=== PATIENT | female | born 1995 | race Caucasian/White ===

== ENCOUNTER 2017-05-05 18:11 | Emergency (ER) | payer BC ==
[2017-05-05 19:44] VITALS: BP 152/91
[2017-05-05] MEDS ORDERED: Lidocaine 1% MPF* 2 ML VIAL INJ ONE ×2 (20:19→20:20)
--- NOTE | 2017-05-05 20:49 | UC ---
Laceration HPI - HPI Summary HPI Summary: 22 female presents to with complaints of laceration to left index finger that began around 1800 today, while cooking dinner with a knife. States she was cutting an [place] when the knife slipped. Denies any other injuries or complaints. Denies foreign body. No other complaints. Tetanus was last updated in January 2017. Denies numbness and tingling, bleeding controlled with pressure , is able to move entire finger without difficulty. Is right hand dominant. - History Of Current Complaint Chief Complaint: UCLaceration Stated Complaint: LACERATION LEFT INDEX FINGER Time Seen by Provider: 05/05/17 20:07 Hx Obtained From: Patient Hx Last Menstrual Period: 2 weeks Laceration Location: Finger - left index Mechanism Of Injury: Sharp Trauma - knife Onset/Duration: Sudden Onset, Lasting Hours Severity: Moderate Pain Intensity: 5 Pain Scale Used: 0-10 Numeric Aggravating Factors: Movement Hands: 1 - left superficial laceration Related History: Dominant Hand Right - Allergies/Home Medications Allergies/Adverse Reactions: Allergies Allergy/AdvReac Type Severity Reaction Status Date / Time Penicillins Allergy Diarrhea Verified 05/05/17 19:45 Home Medications: Home Medications Amitriptyline TAB* [Elavil TAB*] 10 mg PO BEDTIME 05/05/17 [History Confirmed ] Loestrogen Oc 1 tab PO QPM 05/05/17 [History Confirmed 05/05/17] Magnesium [Magnesium] 400 mg PO DAILY 05/05/17 [History Confirmed 05/05/17] Melatonin 3 mg PO QPM 05/05/17 [History Confirmed 05/05/17] Multivitamins/Minerals TAB* [Theragran/minerals TAB*] 1 tab PO DAILY 05/05/17 [ History Confirmed 05/05/17] Probiotic Product [Daily Probiotic] 1 cap PO DAILY 05/05/17 [History Confirmed 05/05/17] Spironolactone TAB* [Aldactone TAB*] 25 mg PO DAILY 05/05/17 [History Confirmed 05/05/17] Vitamin B 2 1 tab PO DAILY 05/05/17 [History Confirmed 05/05/17] PMH/Surg Hx/FS Hx/Imm Hx - Additional Past Medical History Additional PMH: Denies PMHx No DM or HTN and no anticoagulants. - Surgical History Surgical History: None - Family History Known Family History: Positive: None - Social History Alcohol Use: Occasionally Substance Use Type: None Smoking Status (MU): Never Smoked Tobacco - Immunization History Most Recent Tetanus Shot: 01/2017 Review of Systems Constitutional: Negative Skin: Other - laceration left index finger Respiratory: Negative Cardiovascular: Negative Musculoskeletal: Negative All Other Systems Reviewed And Are Negative: Yes Physical Exam Triage Information Reviewed: Yes Appearance: Well-Appearing, Well-Nourished, Pain Distress - mild Vital Signs: Initial Vital Signs Temp 97.7 F 05/05/17 19:40 Pulse 98 05/05/17 19:40 Resp 16 05/05/17 19:40 BP 152/91 05/05/17 19:40 Vital Signs Reviewed: Yes Eyes: Positive: Conjunctiva Clear ENT: Positive: Hearing grossly normal Neck: Positive: Supple, Nontender Respiratory: Positive: Chest non-tender, Lungs clear, Normal breath sounds, No respiratory distress, No accessory muscle use Cardiovascular: Positive: RRR, No Murmur, Pulses Normal - 2+ radial b/l, Brisk Capillary Refill - <2 sec Musculoskeletal: Positive: Strength Intact, ROM Intact, No Edema. Negative: Strength Limited @, ROM Limited @ Neurological: Positive: Alert Skin: Positive: Other - 1.5cm linear superficial laceration to left index finger , bleeding controlled, no FB Laceration Repair - Laceration Repair 1 Description: Linear Laceration Size After Repair: Length (cm) - 1.5 Contamination/FB Removal: none Debridement: none Modified For Repair: No Type Injection: Local Anesthesia Used: 1.0% Lido Cleansing Completed Via Routine Prep: Yes Irrigation With Pressure Irrigation Device: Yes Closure Material: Sutures - 3 Closure Method: Single Layer Suture Of: SQ Suture Type: Prolene - 4-0 Laceration Course/Dx - Course/Dx Course Of Treatment: due to JIMMY, HPI and PE findings did not appear necessary for xray. wound was irrigated thouroughly. laceration was sutured using sterile procedure without complication. 3 sutures placed. patient tolerated procedure well. RICE. Keep clean and dry. Triple anitbiotic ointment. Aware of worsening signs and symptoms, such as infection. No concern for other etiology at this time. Follow up with PCP. Remove stitches in 7-10 days. - Differential Dx - Laceration/Wound Differental Diagnoses: Abrasion, Avulsion, Laceration Provider Diagnoses: laceration left index finger Discharge - Discharge Plan Condition: Stable Disposition: HOME Patient Education Materials: Care For Your Stitches (ED), Laceration (ED) Referrals: [facility] [Outside] Additional Instructions: Do not get stitches wet for 24-48 hours. Keep clean and dry. Redress after 24-48 hours. Apply triple antibiotic ointment after 48 hours. Ibuprofen for any discomfort/soreness. RICE. Watch for signs of infection, if they occur please seek medical attention promptly. Follow up with PCP. Have stitches removed in 7-10 days.
== END 2017-05-05 20:55 | disposition home or self-care (01) ==
LOC: UCCORT 18:11
DX: S61.211A Laceration without foreign body of left index finger without damage to nail, initial encounter (principal); W26.0XXA Contact with knife, initial encounter; Y93.G1 Activity, food preparation and clean up; Y92.9 Unspecified place or not applicable; Z88.0 Allergy status to penicillin
CPT/HCPCS: 12001; 99201; G0463